=== PATIENT | male | born 1955 | race Caucasian/White ===

== ENCOUNTER 2018-11-10 00:10 | Emergency (ER) | payer BC ==
[2018-11-10] MEDS ORDERED: Lidocaine 2% 10 ML Amp INJECT ONE (00:24)
--- NOTE | 2018-11-10 00:55 | EDM.PDOC ---
ED HPI GENERAL MEDICAL PROBLEM - General Chief Complaint: General Stated Complaint: Bleeding from scrotum, post hydrocele repair Time Seen by Provider: 11/10/18 00:23 Source of Information: Reports: Patient, RN, RN Notes Reviewed History Limitations: Reports: No Limitations - History of Present Illness INITIAL COMMENTS - FREE TEXT/NARRATIVE: Patient presents to the emergency room at [facility] for the evaluation of bleeding from the scrotum. The patient states about one month ago he had a hydrocele repair in [place]. The patient states that the procedure was uneventful and he believes he did not have any complications. The patient states he noticed tonight his clothing and undergarments felt wet and cold, therefore he stopped at a rest area and noticed blood in his groin. Therefore, the patient presented to this emergency room for evaluation and treatment. Onset: Unknown/Unsure - Related Data Home Meds: Home Meds cephALEXin [Cephalexin] 500 mg PO TID 10 Days #30 capsule 11/10/18 [Rx] ED ROS GENERAL - Review of Systems Review Of Systems: See Below Constitutional: Denies: Fever, Chills Respiratory: Denies: Shortness of Breath, Cough Cardiovascular: Denies: Chest Pain, Palpitations GI/Abdominal: Reports: No Symptoms : Reports: No Symptoms Skin: Reports: Wound (dehiscence of scrotal surgical site) Neurological: Reports: No Symptoms ED EXAM, GENERAL - Physical Exam Exam: See Below Exam Limited By: No Limitations General Appearance: Alert, No Apparent Distress Respiratory/Chest: No Respiratory Distress, Lungs Clear, Decreased Breath Sounds Cardiovascular: Regular Rate, Rhythm Peripheral Pulses: 2+: Radial (L), Radial (R) GI/Abdominal: Normal Bowel Sounds, Soft, Non-Tender (Male) Exam: Scrotum Tenderness (L), Scrotum Tenderness (R) Neurological: Alert, Oriented Skin Exam: Warm, Dry, Normal Color, Wound/Incision (3 cm horizontal wound dehiscence on the underside of the scrotum; low grade venous ooze; area will require surgical closure for optimal wound healing) ED GENERAL MEDICAL PROCEDURES - Laceration/Wound Repair Bilateral Lower Midline Scrotum Lac/wound length in cm: 3 Appearance: Subcutaneous, Clean Distal NVT: Neuro & Vascular Intact Anesthetic Type: Local Local Anesthesia - Lidocaine (Xylocaine): 2% Plain Local Anesthetic Volume: 5cc Skin Prep: Chlorhexidine (Hibiciens), Saline Exploration/Debridement/Repair: Wound Explored, Explored to Base, No Foreign Material Found, Wound Margins Revised Closed with: Sutures Suture Size: 3-0 # of Sutures: 6 Suture Type: Nylon Sterile Dressing Applied: Nurse Tetanus Status Addressed: Yes Complications: No Course - Orders/Labs/Meds Meds: Medications Discontinued Medications Generic Name Dose Route Start Last Admin Trade Name Atul PRN Reason Stop Dose Admin Lidocaine HCl 10 ml 11/10/18 00:24 Xylocaine-Mpf 2% (Sterile-Silvio) INJECT 11/10/18 00:25 ONETIME ONE Departure - Departure Time of Disposition: 00:56 Disposition: Home, Self-Care 01 Condition: Good Clinical Impression: Scrotal swelling, Surgical site infection Wound dehiscence, surgical Qualifiers: Encounter type: initial encounter Qualified Code(s): T81.31XA - Disruption of external operation (surgical) wound, not elsewhere classified, initial encounter - Discharge Information *PRESCRIPTION DRUG MONITORING PROGRAM REVIEWED*: Not Applicable *COPY OF PRESCRIPTION DRUG MONITORING REPORT IN PATIENT CATHY: Not Applicable Prescriptions: cephALEXin [Cephalexin] 500 mg PO TID 10 Days #30 capsule Instructions: Scrotal Swelling, Wound Dehiscence, Surgical Site Infections FAQs - SEN, Sutured Wound Care Additional Instructions: 1. Stay well hydrated and rest 2. Keep scrotum clean and dry 3. Keep gauze or pad over sutures so they do not get rubbed or irritated 4. Start antibiotics ABI 5. See your Primary ABI 6. Call us with any questions or concerns - Problem List Review Problem List Initiated/Reviewed/Updated: Yes - Assessment/Plan Assessment:: Surgical site wound infection Wound dehiscence Plan: Wound closed with 6 3-0 Nylon sutures. Pads put in placed to avoid rubbing and wearing on sutures. Discussed with patient he needs to wear a supportive jock or scrotal sling. He needs to f/u with his Urological ABI.
[2018-11-10] MEDS ORDERED: Take Home: Cephalexin 500 MG Cap, 4 Cap Pack PO ONE (01:00)
== END 2018-11-10 01:12 | disposition home or self-care (01) ==
LOC: EDBD 00:10 → VM.ED 00:10
DX: T81.31XA Disruption of external operation (surgical) wound, not elsewhere classified, initial encounter (principal)
CPT/HCPCS: 12002; 12020; 99283; A9270-GY